=== PATIENT | female | born 1965 | race African-American/Black ===

== ENCOUNTER 2020-08-14 11:36 | Emergency (ER) | payer BC ==
[~2020-08-14] VITALS: Ht 170.2 cm; Wt 97.5 kg
[2020-08-14] MEDS ORDERED: LISINOPRIL PO (11:56)
[2020-08-14 12:09] LABS: ABSOLUTE NEUTROPHILS 2.2 thou/uL (1.4-8.2); EOSINOPHILS 13.3 % (0.0-3.0); HEMATOCRIT 36.1 % (37.0-47.0); HEMOGLOBIN 11.4 gm/dL (12.0-15.0); MCH 24.6 pg (26.0-34.0); MCHC 31.6 g/dL (28.0-37.0); MCV 78.1 fL (80.0-100.0); MONOCYTES 9.8 % (1.0-8.0); PLATELET COUNT 145 thou/uL (150-400); POLYS 44.9 % (36.0-66.0); RBC 4.62 mil/uL (4.20-5.00); RDW 15.3 % (10.5-14.5); WBC 4.9 thou/uL (4.0-11.0)
[2020-08-14 12:23] LABS: ANION GAP 13 mmol/L (7-16); BUN 26 mg/dL (7-18); CHLORIDE 105 mmol/L (98-107); CO2 24 mmol/L (21-32); CREATININE 1.4 mg/dL (0.6-1.0); GLUCOSE 109 mg/dL (74-106); POTASSIUM 4.3 mmol/L (3.5-5.1); SODIUM 142 mmol/L (136-145)
[2020-08-14 12:33] LABS: ALBUMIN 4.1 g/dL (3.4-5.0); LIPASE 144 U/L (73-393); SGOT 15 U/L (15-37); SGPT 26 U/L (14-59); TOTAL BILIRUBIN 0.4 mg/dL (0.2-1.0); TOTAL PROTEIN 7.5 g/dL (6.4-8.2); TROPONIN-I <0.06 ng/mL (<0.06)
[2020-08-14 14:44] VITALS: BP 157/91
--- NOTE | 2020-08-15 13:12 | EKG ---
[address] [address] ELECTROCARDIOGRAM REPORT Name: SUZETTEGEORGES Cuco Room [facility] [id number] Admission: 08/14/20 Attend Phys: Discharge: 08/14/20 Date of : 61 Report #: [id number] [facility] ED Test Date: 2020-08-14 Test Time: 11:43:30 Pat Name: GEORGES BRADFORD Department: Room: Gender: F [employer]: CARLOS EDUARDO : 1965 Requested By: Hermann Dumont Order Number: [id number] MD: Koffi Reyna Measurements Intervals [place] Rate: 96 P: 49 RI: 160 QRS: 8 QRSD: 89 T: 38 QT: 386 QTc: 488 Interpretive Statements Sinus rhythm Probable left atrial enlargement No previous ECG available for comparison Electronically Signed On 08-15-2020 13:12:15 CDT by Koffi Reyna [email or web address] <ELECTRONICALLY SIGNED> By: Koffi Reyna MD 08/15/20 1312 1143 1143 Koffi Reyna MD /[email or web address]
== END 2020-08-14 15:00 | disposition home or self-care (01) ==
LOC: ER 11:36
PROVIDERS: Emergency Medicine
DX: R06.02 Shortness of breath (principal); R07.89 Other chest pain; E78.5 Hyperlipidemia, unspecified; E11.9 Type 2 diabetes mellitus without complications